=== PATIENT | female | born 1970 | race Caucasian/White ===

== ENCOUNTER 2023-08-11 08:51 | Outpatient (CLI) | payer OTHER, SELFPAY ==
--- NOTE | ~2023-08-11 | XR_ITS ---
EXAMINATION: XR lumbar spine 2-3V DATE: 08/11/2023 09:26 INDICATION: Lumbar pain. TECHNIQUE: 3 views of lumbar spine were obtained. COMPARISON: None. FINDINGS: There is 8 degrees levocurvature of lumbar spine. Vertebral body heights are normal. There is moderately decreased disc height at T12-L1. There is mildly decreased disc height at L1-L2 and L2- L3. There are changes of anterior and posterior fusion procedures at L5-S1 with interbody devices and pedicle screws. There are implants of uncertain type to the left of L4 on L5. IMPRESSION: 1. Anterior and posterior fusion procedures at L5-S1. 2. Mild lumbar spondylosis. Reviewed, dictated and finalized at location A.
== END 2023-08-11 08:52 ==
LOC: MICIMG 08:53
PROVIDERS: PCP Nurse Practitioner Family; Visit Provider Nurse Practitioner Family
DX: M47.896 Other spondylosis, lumbar region (principal); Z98.1 Arthrodesis status
CPT/HCPCS: 72100

== ENCOUNTER 2023-08-27 15:58 | Outpatient (CLI) | payer OTHER, SELFPAY ==
--- NOTE | ~2023-08-27 | MR_ITS ---
EXAMINATION: MR lumbar spine wo con DATE: 08/27/2023 16:22 INDICATION: Low back pain. Left leg pain. TECHNIQUE: Magnetic resonance imaging (MRI) of the lumbar spine was performed without intravenous con trast. COMPARISON: Lumbar spine radiographs 08/11/2023 FINDINGS: Bone alignment is normal. There is mild chronic anterior wedging of T12 and L1 vertebral kishore dies. There is moderately decreased disc height at T11-T12 and T12-L1 and mildly decreased disc heigh t at L3-L4. There are changes of anterior and posterior fusion procedures at L5-S1. The distal spinal cord signal intensity is normal. The conus medullaris is at T12-L1. The following disc levels are sp ecifically discussed: L1-L2: The disc does not extend beyond the endplate margin. There is no facet joint osteoarthritis. T here is no neural foraminal stenosis. There is no central canal stenosis. L2-L3: The disc is bulging. There is mild bilateral facet joint osteoarthritis. There is mild left ne ural foraminal stenosis. There is mild central canal stenosis. L3-L4: The disc is bulging and has an annular fissure. There is moderate right and mild left facet ramona int osteoarthritis. There is mild bilateral neural foraminal stenosis. There is mild central canal st enosis. L4-L5: The disc is bulging. There is severe bilateral facet joint osteoarthritis. There is mild bilat eral neural foraminal stenosis. There is no central canal stenosis. L5-S1: There is mild right and severe left facet joint hypertrophy. There is mild bilateral neural fo raminal stenosis. There is no central canal stenosis. IMPRESSION: 1. Mild lumbar spondylosis. 2. Anterior and posterior fusion procedures at L5-S1. Reviewed, dictated and finalized at location A.
== END 2023-08-27 15:59 ==
LOC: MICIMG 16:01
PROVIDERS: PCP Nurse Practitioner Family; Visit Provider Nurse Practitioner Family
DX: M43.06 Spondylolysis, lumbar region (principal); Z98.1 Arthrodesis status
CPT/HCPCS: 72148

== ENCOUNTER 2024-03-27 09:36 | Outpatient (CLI) | payer OTHER, SELFPAY ==
--- NOTE | ~2024-03-27 | XR_ITS ---
Right wrist Technique: PA, oblique, lateral, and ulnar deviation views were obtained. Clinical History: Pain Findings: No acute fracture or dislocation is seen. Osseous alignment is anatomic. There is moderate degenerative change of the triscaphe joint. Soft tissues are unremarkable. Impression: Moderate triscaphe joint degenerative change. Reviewed, dictated and finalized at [facility]. 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
== END 2024-03-27 09:37 | disposition home or self-care (01) ==
LOC: MICIMG 09:37
PROVIDERS: PCP Nurse Practitioner Family; Visit Provider Family Medicine
DX: M19.031 Primary osteoarthritis, right wrist (principal)
CPT/HCPCS: 73110